=== PATIENT | female | born 1990 | race Caucasian/White ===

== ENCOUNTER 2021-07-21 13:08 | Emergency (ER) | payer SELFPAY ==
[~2021-07-21] VITALS: Ht 165.1 cm; Wt 77.1 kg
[2021-07-21] MEDS ORDERED: LORAZEPAM 0.5 MG TAB PO ONE (15:00)
[2021-07-21] MEDS ORDERED: LORAZEPAM 0.5 MG TAB ONE (15:32)
[2021-07-21] MEDS ORDERED: KLONOPIN1 MG PO (16:25)
[2021-07-21 16:49] VITALS: BP 138/72
== END 2021-07-21 16:51 | disposition home or self-care (01) ==
LOC: FSED 14:22
DX: R07.89 Other chest pain (principal); F41.9 Anxiety disorder, unspecified; F10.20 Alcohol dependence, uncomplicated; F32.A Depression, unspecified; E03.9 Hypothyroidism, unspecified
CPT/HCPCS: 36415; 71046; 80053; 81003; 81025; 82553; 84443; 84484; 85025; 93005; 99283